=== PATIENT | male | born 1990 | race African-American/Black ===

== ENCOUNTER 2022-12-12 12:56 | Emergency (ER) | payer BC, OTHER ==
[2022-12-12 14:56] LABS: CORONAVIRUS COVID-19 NAA NEGATIVE (NEGATIVE)
== END 2022-12-12 15:20 | disposition home or self-care (01) ==
LOC: JD.ED 12:56
DX: J10.1 Influenza due to other identified influenza virus with other respiratory manifestations (principal); Z20.822 Contact with and (suspected) exposure to COVID-19
CPT/HCPCS: 0241U; 71045; 99283